=== PATIENT | female | born 1990 | race Caucasian/White ===

== ENCOUNTER 2018-09-19 10:06 | Outpatient (CLI) | payer OTHER ==
[~2018-09-19] VITALS: Ht 160 cm; Wt 89.0 kg
[2018-09-19 10:23] VITALS: Ht 160 cm; Wt 89.0 kg
[2018-09-19 10:24] VITALS: BP 112/63; PULSE 96; RESP 18
--- NOTE | 2018-09-19 12:37 | TRIAGE ---
OB Triage Datetime Report Generated by CPN: 09/19/2018 12:37 Datetime: 09/19/2018 12:00 Stage of : OB Triage Maternal Assessment Level of Consciousness: Keenly Alert, Responsive Labor Evaluation Frequency: 0 Monitor Mode: External Resting Tone [place]: Relaxed Heart Rate FHR Baseline Rate: 150 Monitor Mode: External US Variability: Moderate 6-25 bpm Accelerations: AGA Decelerations: AGA Pain Assessment Pain Scale: 2 Pain Presence: Intermittent Pain Type: Ache Pain Location: Abdomen Pain Goal: 3 Vaginal Exam Membrane Status: Intact Vaginal Bleeding: None Datetime: 09/19/2018 11:00 Stage of : OB Triage Maternal Assessment Level of Consciousness: Keenly Alert, Responsive Labor Evaluation Frequency: 0 Monitor Mode: External Resting Tone [place]: Relaxed Heart Rate FHR Baseline Rate: 150 Monitor Mode: External US Variability: Moderate 6-25 bpm Accelerations: AGA Decelerations: AGA Pain Assessment Pain Scale: 2 Pain Presence: Intermittent Pain Type: Ache Pain Location: Abdomen Pain Goal: 3 Vaginal Exam Membrane Status: Intact Vaginal Bleeding: None Datetime: 09/19/2018 10:21 Assessment Type: Triage Maternal Assessment Level of Consciousness: Keenly Alert, Responsive DTR's/Clonus: DTRs 2+; No Clonus Headache: Denies Blurred Vision: No Respiratory Effort: Unlabored; Regular Rhythm; Equal Expansion Breath Sounds, Left: Clear and Equal Breath Sounds, Right: Clear and Equal Nausea/Vomiting: Denies RUQ Epigastric Pain: Denies Lower Extremities Edema: None Degree: None Upper Extremities Edema: None Degree: None Facial Edema: None Fall Risk Assessment History of Falling: (0) No Secondary Diagnosis: (0) No Ambulatory Aid: (0) Bedrest/Nurse Assist IV Therapy: (0) No Gait: (0) Normal/Bedrest/Immobile Mental Status: (0) Oriented to Own Ability Fall Score: 0 Fall Risk Score Definition: No Risk: No action required Datetime: 09/19/2018 10:19 Time of Arrival: 09/19/2018 10:00 EGA: 25.2 Arrived By: Ambulatory Arrived From: Home Chief Complaint: PT. CAME IN POST VOMMITTING DURING 3 HR GTT AT LAB Movement: Present Contractions: Denies/Absent Rupture of Membranes: Denies Vaginal Bleeding: None Vaginal Discharge: Denies Recent Sexual Intercouse: Denies Abdominal Trauma: Not Applicable Patient Complaints: Cramping; Nausea Time Provider Notified: 09/19/2018 10:05 Provider Notified: DELSHAD Initial Plan: EFM/CBC/CMP/UA Datetime: 09/19/2018 10:16 Monitor Mode: External Monitor Mode: External US
--- NOTE | 2018-09-19 12:40 | PN ---
Triage Information Date/Time Reason for visit: Abd/pelvic pain Weeks of Gestation 25 weeks /Para Diabetes: none Hypertention: none Objective Vital Signs Date Temp Pulse Resp B/P (MAP) Pulse Ox O2 O2 Flow FiO2 Time Delivery Rate 09/19/18 97.6 96 18 112/63 Room Air 10:24 (79) Heart Rate: 130's Heart Rate Comments Appropriate for GA Contractions: None Results/Medications Result Diagram: 09/19/18 1055 09/19/18 1055 Results 24 hrs Laboratory Tests Test 09/19/18 10:15 09/19/18 10:55 Urine Color YELLOW Urine Clarity CLOUDY A Urine pH 5.0 Urine Specific [place] 1.023 Urine Ketones NEGATIVE Urine Nitrite NEGATIVE Urine Bilirubin NEGATIVE Urine Urobilinogen NEGATIVE Urine Leukocyte Esterase 2+ H Urine Microscopic RBC 4 Urine Microscopic WBC 25 H Urine Squamous Epithelial Cells MANY A Urine Bacteria FEW A Urine Mucus MODERATE Urine Hemoglobin NEGATIVE Urine Glucose 3+ H Urine Total Protein 1+ H White Blood Count 9.9 Red Blood Count 4.29 Hemoglobin 12.0 Hematocrit 37.3 Mean Corpuscular Volume 86.9 Mean Corpuscular Hemoglobin 28.0 L Mean Corpuscular Hemoglobin Concent 32.2 Red Cell Distribution Width 12.5 Platelet Count 155 Mean Platelet Volume 12.1 H Immature Granulocytes % 0.500 H Neutrophils % 81.1 H Lymphocytes % 8.5 L Monocytes % 8.4 Eosinophils % 1.2 Basophils % 0.3 Nucleated Red Blood Cells % 0.0 Immature Granulocytes # 0.050 H Neutrophils # 8.0 H Lymphocytes # 0.8 Monocytes # 0.8 Eosinophils # 0.1 Basophils # 0.0 Nucleated Red Blood Cells # 0.0 Sodium Level 137 Potassium Level 3.2 L Chloride Level 109 Carbon Dioxide Level 20 L Anion Gap 8 Blood Urea Nitrogen 3 L Creatinine 0.36 L Est Glomerular Filtrat Rate mL/min > 60 Glucose Level 112 Calcium Level 8.6 Total Bilirubin 0.3 Direct Bilirubin 0.00 Indirect Bilirubin 0.3 Aspartate Amino Transf (AST/SGOT) 20 Alanine Aminotransferase (ALT/SGPT) 20 Alkaline Phosphatase 134 H Total Protein 6.0 L Albumin 3.2 L Globulin 2.80 Albumin/Globulin Ratio 1.14 Disposition: Discharge Assessment/Plan Patient took glucola for 3 hr GTT and patient vomited and had some abdominal pain which resolved. Patient has no complaint now. Patient is scheduled to see Perinatology for follow up on 09/26/2018. ROOSEVELT ARVIZU MD Sep 19, 2018 12:39
== END 2018-09-19 11:40 | disposition home or self-care (01) ==
LOC: OBT 10:06 → L-D 10:07 → OBT 11:40
PROVIDERS: ATTEND Obstetrics & Gynecology
DX: O26.892 Other specified pregnancy related conditions, second trimester (principal); Z3A.25 25 weeks gestation of pregnancy; R10.2 Pelvic and perineal pain
CPT/HCPCS: 80053; 81001; 85025; Z7500; G0463

== ENCOUNTER 2018-12-19 03:54 | Inpatient (IN) | payer OTHER ==
[~2018-12-19] VITALS: Ht 160 cm; Wt 102.6 kg
[~2018-12-19 03:54] MED LIST: PNV11TAB PO
[2018-12-19 04:15] VITALS: BP 127/76; PULSE 70; RESP 18
[2018-12-19] MEDS ORDERED: TERBUTALINE 1 MG/ML INJ SC ONE (05:00)
[2018-12-19] MEDS ORDERED: LACTATED RINGER'S 1,000 ML IV SCH ×2 (05:00→07:19)
[2018-12-19] MEDS ORDERED: LACTATED RINGER'S 1,000 ML IV ONE (05:00)
[2018-12-19] MEDS ORDERED: CARBOPROST 250 MCG INJ IM PRN ×2 (07:30→18:00)
[2018-12-19] MEDS ORDERED: OXYTOCIN 30 UNITS/LR 500 ML IV SCH ×2 (07:30→17:37)
[2018-12-19] MEDS ORDERED: METHYLERGONOVINE 0.2 MG INJ IM PRN ×2 (07:30→18:00)
[2018-12-19] MEDS ORDERED: MISOPROSTOL 200 MCG TAB PR PRN ×2 (07:30→18:00)
[2018-12-19] MEDS ORDERED: OXYTOCIN 30 UNITS/LR 500 ML IV PRN ×2 (07:30→18:00)
[2018-12-19] MEDS ORDERED: CEFAZOLIN 2 GM/50 ML (PMX) 50 ML IVPB SCH (08:00)
[2018-12-19] MEDS ORDERED: ONDANSETRON 4 MG INJ IV STA (12:12)
[2018-12-19] MEDS ORDERED: CITRIC ACID/NA CITRATE 30 ML CUP PO ONE (12:30)
[2018-12-19] MEDS ORDERED: FAMOTIDINE 20 MG INJ IV SCH (12:30)
[2018-12-19] MEDS ORDERED: FENTAnyl 50 MCG/ML VIAL ONE (12:35)
[2018-12-19] MEDS ORDERED: morphine 2 MG INJ IV PRN ×4 (13:00→14:00)
[2018-12-19] MEDS ORDERED: KETOROLAC 30 MG INJ IV PRN (13:00)
[2018-12-19] MEDS ORDERED: TRIMETHOBENZAMIDE 100 MG/ML VIAL IM PRN ×2 (13:00→14:00)
[2018-12-19] MEDS ORDERED: ONDANSETRON 4 MG INJ IV PRN ×2 (13:00→14:00)
[2018-12-19] MEDS ORDERED: NALOXONE (0.4 MG/ML) INJ IV PRN ×2 (13:00→14:00)
[2018-12-19] MEDS ORDERED: NALBUPHINE HCL (10 MG/1 ML) INJ IV PRN ×2 (13:00→14:00)
[2018-12-19] MEDS ORDERED: DIPHENHYDRAMINE 50 MG INJ IV PRN ×2 (13:00→14:00)
[2018-12-19] MEDS ORDERED: METOCLOPRAMIDE 10 MG INJ ONE (13:51)
[2018-12-19] MEDS ORDERED: AZITHROMYCIN 500MG/NS (PMX) 250 ML ONE (14:00)
[2018-12-19 17:20] VITALS: BP 129/76; PULSE 67; RESP 17
[2018-12-19] MEDS: LACTATED RINGER'S 1,000 ML IV SCH (17:37)
[2018-12-19] MEDS ORDERED: LANOLIN HPA 1 PKT TOP PRN (18:00)
[2018-12-19 19:20] VITALS: BP 105/75; PULSE 59; RESP 18
[2018-12-19] MEDS: SENNA/DOCUSATE NA (8.6MG/50MG) TAB PO SCH (21:46)
[2018-12-19] MEDS: KETOROLAC 30 MG INJ IV PRN (21:52)
[2018-12-20 03:52] VITALS: BP 100/60; PULSE 65; RESP 18
[2018-12-20] MEDS: KETOROLAC 30 MG INJ IV PRN ×2 (04:17→10:36)
[2018-12-20 08:00] VITALS: BP 110/58; PULSE 67; RESP 18
[2018-12-20] MEDS: LACTATED RINGER'S 1,000 ML IV SCH (08:01)
[2018-12-20] MEDS: SENNA/DOCUSATE NA (8.6MG/50MG) TAB PO SCH ×2 (09:00→21:35)
[2018-12-20 12:02] VITALS: BP 112/62; PULSE 66; RESP 16
[2018-12-20] MEDS: IBUPROFEN 800 MG TAB PO SCH ×2 (14:00→21:35)
[2018-12-20 15:49] VITALS: BP 125/58; PULSE 94; RESP 18
[2018-12-20] MEDS: OXYCODONE/ACETAMINOPHEN (5/325) TAB PO PRN (15:49)
[2018-12-20 19:30] VITALS: BP 121/63; PULSE 92; RESP 18
[2018-12-21] MEDS: OXYCODONE/ACETAMINOPHEN (5/325) TAB PO PRN ×3 (00:26→17:33)
[2018-12-21 04:05] VITALS: BP 100/55; PULSE 59; RESP 18
[2018-12-21] MEDS: IBUPROFEN 800 MG TAB PO SCH ×3 (05:33→21:31)
[2018-12-21 08:18] VITALS: BP 112/67; PULSE 64; RESP 20
[2018-12-21] MEDS: SENNA/DOCUSATE NA (8.6MG/50MG) TAB PO SCH ×2 (08:58→21:31)
[2018-12-21 16:00] VITALS: BP 122/81; PULSE 74; RESP 18
[2018-12-21 20:10] VITALS: BP 118/59; PULSE 74; RESP 19
[2018-12-22] MEDS: OXYCODONE/ACETAMINOPHEN (5/325) TAB PO PRN ×2 (00:36→13:08)
[2018-12-22 04:00] VITALS: BP 128/59; PULSE 80; RESP 18
[2018-12-22] MEDS: IBUPROFEN 800 MG TAB PO SCH ×2 (05:37→13:09)
[2018-12-22 08:00] VITALS: BP 117/56; PULSE 66; RESP 18
[2018-12-22] MEDS ORDERED: DIPHTH/TET/ACEL PERTUSS (ADULT) 0.5 ML VIAL IM* ONE (09:00)
[2018-12-22] MEDS: SENNA/DOCUSATE NA (8.6MG/50MG) TAB PO SCH (09:31)
== END 2018-12-22 13:30 | disposition home or self-care (01) | DRG 788 ==
LOC: L-D 03:54 → OBT 03:54 → L-D 07:31 → PP1 17:20
PROVIDERS: ADMIT Obstetrics & Gynecology; ATTEND Obstetrics & Gynecology
PROC: 10D00Z1 Extraction of Products of Conception, Low, Open Approach (ICD-10-PCS; principal; 2018-12-19)
PROC: 0UN90ZZ Release Uterus, Open Approach (ICD-10-PCS; 2018-12-19)
DX: O34.211 Maternal care for low transverse scar from previous cesarean delivery (principal); O99.89 Other specified diseases and conditions complicating pregnancy, childbirth and the puerperium; N73.6 Female pelvic peritoneal adhesions (postinfective); Z3A.38 38 weeks gestation of pregnancy; Z37.0 Single live birth
CPT/HCPCS: 36415; 81001; 85025; 85610; 85730; 86592; 86850; 86900; 86901; 87340; 96360; 96361; 99464; G0463; J0456; J0690; J1200; J1885; J2270; J2405; J2590; J2765; J3010; J7120